=== PATIENT | female | born 1985 | race Caucasian/White ===

== ENCOUNTER 2017-07-31 18:02 | Emergency (ER) | payer MEDICAID ==
[2017-07-31] MEDS: DIPHTH/TET/ACEL PERTUSS (ADULT) 0.5 ML VIAL IM* (19:10)
== END 2017-07-31 19:53 | disposition home or self-care (01) ==
LOC: FTE 18:02
DX: S61.411A Laceration without foreign body of right hand, initial encounter (principal); W25.XXXA Contact with sharp glass, initial encounter; Y92.9 Unspecified place or not applicable; Z23 Encounter for immunization
CPT/HCPCS: 73130; 73130-RT; 90471; 90715; 99283-25